=== PATIENT | female | born 1955 | race Caucasian/White ===

== ENCOUNTER 2021-02-25 13:53 | Outpatient (CLI) | payer MEDICARE, BC ==
[~2021-02-25] VITALS: Ht 165.1 cm; Wt 102.0 kg
[2021-02-25] VITALS (7 sets, daily range): BP systolic 112–145; BP diastolic 46–64; PULSE 68–76; TEMP 97.6
[2021-02-25] MEDS ORDERED: SYNTHROID0.125 MG/T PO (15:22)
[2021-02-25] MEDS ORDERED: CELEXA40 MG PO (15:22)
[2021-02-25] MEDS ORDERED: SINGULAIR 110 MG/TAB PO (15:23)
[2021-02-25] MEDS ORDERED: SOMA 350MG350 MG/TAB PO (15:24)
[2021-02-25] MEDS ORDERED: RT ADVAIR 228 DISKUS IH (15:24)
[2021-02-25] MEDS ORDERED: PROAIR HFA0.09 MG/AC IH (15:24)
[2021-02-25] MEDS ORDERED: D3-5050000 IU PO (15:25)
[2021-02-25] MEDS ORDERED: COMPLETE MULTI1 TAB PO (15:26)
[2021-02-25] MEDS ORDERED: CALCIUM ASCORB500 MG PO (15:27)
[2021-02-25] MEDS ORDERED: VITAMIN C500 MG PO (15:28)
[2021-02-25] MEDS ORDERED: ZINC16.7 MG PO (15:28)
[2021-02-25] MEDS ORDERED: VITAMIN B122500 MCG SL (15:29)
[2021-02-25] MEDS ORDERED: ZYRTEC 10MG10 MG PO (15:29)
[2021-02-25] MEDS ORDERED: IRON TABLETS325 MG PO (15:30)
[2021-02-25] MEDS ORDERED: MELATONIN5 M1 SL (15:31)
--- NOTE | 2021-02-25 16:35 | NUR ---
Pt tolerated infusion and 1 hr obs period without issue. INT DC'd with catheter intact. Pt was escorted out to ED entrance.
== END 2021-02-25 16:35 | disposition home or self-care (01) ==
LOC: EUO 13:53
DX: U07.1 COVID-19 (principal)
CPT/HCPCS: M0243; Q0244

== ENCOUNTER → 2021-09-23 | Outpatient (CLI) | payer MEDICARE, BC ==
[~2021-09-23] MED LIST: CALCIUM ASCORB500 MG PO; CELEXA40 MG PO; COMPLETE MULTI1 TAB PO; D3-5050000 IU PO; IRON TABLETS325 MG PO; MELATONIN5 M1 SL; PROAIR HFA0.09 MG/AC IH; RT ADVAIR 228 DISKUS IH; SINGULAIR 110 MG/TAB PO; SOMA 350MG350 MG/TAB PO; SYNTHROID0.125 MG/T PO; VITAMIN B122500 MCG SL; VITAMIN C500 MG PO; ZINC16.7 MG PO; ZYRTEC 10MG10 MG PO
== END ==
LOC: MC.RAD 11:23
DX: Z12.31 Encounter for screening mammogram for malignant neoplasm of breast (principal)